=== PATIENT | male | born 1995 | race African-American/Black ===

== ENCOUNTER 2019-07-26 13:08 | Inpatient (IN) | payer OTHER ==
[~2019-07-26] VITALS: Ht 180.3 cm; Wt 80.5 kg
[2019-07-26 13:46] VITALS: BP 125/70; TEMP 98.6
[2019-07-26 14:15] LABS: PLATELET COUNT 284 K/uL (142-355)
[2019-07-26 14:17] LABS: POTASSIUM 4.3 mmol/L (3.6-5.2)
[2019-07-26 16:06] VITALS: BP 124/63; TEMP 98
[2019-07-26 19:56] VITALS: BP 169/77; TEMP 99
[2019-07-27] VITALS (7 sets, daily range): BP systolic 105–116; BP diastolic 52–68; TEMP 98–98.3
[2019-07-28 04:00] VITALS: BP 105/52; TEMP 97.8
[2019-07-28 08:00] VITALS: BP 112/60; TEMP 97.5
[2019-07-28 12:00] VITALS: BP 121/61; TEMP 97.8
== END 2019-07-28 16:25 | disposition home or self-care (01) | DRG 603 ==
LOC: MED/SURG 13:08
PROVIDERS: ADMIT Family Medicine
DX: L03.116 Cellulitis of left lower limb (principal); L02.612 Cutaneous abscess of left foot; R50.9 Fever, unspecified; B95.62 Methicillin resistant Staphylococcus aureus infection as the cause of diseases classified elsewhere
CPT/HCPCS: 80053; 85027; 87040; 87070; 87077; 87185; 87186; 87205; J1885